=== PATIENT | male | born 1955 | race Caucasian/White ===

== ENCOUNTER → 2021-03-30 | Outpatient (CLI) | payer MEDICARE, OTHER | LOC: CARD 12:00 | PROVIDERS: ATTEND Family Medicine | DX: R01.1 Cardiac murmur, unspecified (principal) | CPT/HCPCS: 93306 ==

== ENCOUNTER 2021-08-01 10:45 | Outpatient (RCR) | payer MEDICARE, OTHER | END 2021-08-03 | LOC: ONC 10:45 | PROVIDERS: ATTEND Radiology Radiation Oncology | DX: C03.1 Malignant neoplasm of lower gum (principal); I10 Essential (primary) hypertension | CPT/HCPCS: 99204; 99214 ==

== ENCOUNTER → 2021-09-03 | Outpatient (RCR) | payer MEDICARE, OTHER ==
[2021-08-10 11:19] LABS: CREATININE SERUM 0.68 MG/DL (0.60-1.30)
== END | disposition home or self-care (01) ==
LOC: ONC 08-10 10:34
PROVIDERS: ATTEND Radiology Radiation Oncology
DX: Z51.0 Encounter for antineoplastic radiation therapy (principal); C03.1 Malignant neoplasm of lower gum
CPT/HCPCS: 77300; 77301; 77334; 77338; 77386; 82565; 84520

== ENCOUNTER → 2021-10-01 | Outpatient (RCR) | payer MEDICARE, OTHER | END | disposition home or self-care (01) | LOC: ONC 09-04 08:45 | PROVIDERS: ATTEND Radiology Radiation Oncology | DX: Z51.0 Encounter for antineoplastic radiation therapy (principal); C03.1 Malignant neoplasm of lower gum; I10 Essential (primary) hypertension; E66.9 Obesity, unspecified | CPT/HCPCS: 77386; G0463; 77336 ==

== ENCOUNTER 2021-10-11 08:16 | Outpatient (RCR) | payer MEDICARE, OTHER | END 2021-11-01 | disposition home or self-care (01) | LOC: ONC 08:16 | PROVIDERS: ATTEND Radiology Radiation Oncology | DX: Z51.0 Encounter for antineoplastic radiation therapy (principal); C03.1 Malignant neoplasm of lower gum; I10 Essential (primary) hypertension; E66.9 Obesity, unspecified | CPT/HCPCS: 77386; G0463; 77336 ==

== ENCOUNTER 2021-11-08 08:51 | Outpatient (RCR) | payer MEDICARE, OTHER | END 2021-12-01 | disposition home or self-care (01) | LOC: ONC 08:51 | PROVIDERS: ATTEND Radiology Radiation Oncology | DX: C03.1 Malignant neoplasm of lower gum (principal); I10 Essential (primary) hypertension; E66.9 Obesity, unspecified | CPT/HCPCS: 99213 ==

== ENCOUNTER 2022-01-18 23:22 | Emergency (ER) | payer MEDICARE, OTHER ==
[~2022-01-18] VITALS: Ht 172.7 cm; Wt 90.3 kg
[2022-01-18 23:56] LABS: BASOPHILS % (AUTO) 1 % (0-10); EOSINOPHILS # (AUTO) 0.2 10^3/uL (0.0-0.3); EOSINOPHILS % (AUTO) 3 % (0-10); HEMATOCRIT 41 % (40-54); HEMOGLOBIN 13.9 g/dL (13.3-17.7); LYMPHOCYTES # (AUTO) 0.9 10^3/uL (1.0-4.0); LYMPHOCYTES % (AUTO) 15 % (12-44); MEAN CORPUSCULAR HEMOGLOBIN 33 pg (25-34); MEAN CORPUSCULAR HGB CONC 34 g/dL (32-36); MEAN CORPUSCULAR VOLUME 97 fL (80-99); MEAN PLATELET VOLUME 9.8 fL (9.0-12.2); MONOCYTES # (AUTO) 0.9 10^3/uL (0.0-1.0); MONOCYTES % (AUTO) 16 % (0-12); NEUTROPHILS # (AUTO) 3.7 10^3/uL (1.8-7.8); NEUTROPHILS % (AUTO) 65 % (42-75); PLATELET COUNT 172 10^3/uL (130-400); WHITE BLOOD COUNT 5.8 10^3/uL (4.3-11.0)
[2022-01-19 00:12] LABS: ALBUMIN 3.8 GM/DL (3.2-4.5); POTASSIUM 3.4 MMOL/L (3.6-5.0)
[2022-01-19 00:13] LABS: CALCIUM 9.1 MG/DL (8.5-10.1)
[2022-01-19 00:14] LABS: TOTAL PROTEIN 6.9 GM/DL (6.4-8.2)
[2022-01-19 00:16] LABS: BILIRUBIN,TOTAL 0.5 MG/DL (0.1-1.0)
[2022-01-19 00:18] LABS: CREATININE SERUM 0.69 MG/DL (0.60-1.30)
[2022-01-19] MEDS ORDERED: NS IV 1000 ML 1,000 ML IV SCH ×2 (00:45→01:30)
--- NOTE | 2022-01-19 01:06 | ED Syncope ---
General Chief Complaint: General Problems/Pain Stated Complaint: WEAKNESS Nursing Triage Note: PT ARRIVAL TO ER VIA WHEELCHAIR AFTER PERIOD OF WEAKNESS, AND FALL AT HOME EARLIER THIS EVENING AROUND 2100 HOURS. SPOUSE STATES THAT PATIENT HAS SPENT ALL DAY OUT IN THE HEAT TODAY CUTTING GRASS AND ATTENDING TO THEIR POOL. SHE STATES THAT PATIENT HAD THIS SAME TYPE OF EPISODE THIS MORNING AND A CONTRACTOR WHO WAS AT THE HOUSE ACTUALLY CAUGHT THE PATIENT HE WAS ABOUT TO FALL. PT STATES THAT HE PROBABLY OVER DID IT TODAY IN THE HEAT. Source of Information: Patient Exam Limitations: No Limitations History of Present Illness Date Seen by Provider: Jan 19, 2022 Time Seen by Provider: 23:44 Initial Comments Patient to the ER by private conveyance with his significant other chief complaint that he has had a syncopal episode earlier today but did not fall. And then about 9:00 tonight he had another similar episode. He has been out cutting grass all day and use some prune juice to have a large bowel movement this morning. He has not been sick with anything. He does have a history of mouth cancer status post chemo and radiation therapy and is lost 70 pounds in the last several months. He has not had changes to his blood pressure medications. He remembers he takes benazepril and atenolol. He has an appointment next week with Dr. Pearson to change his blood pressure medicines. He says he gets lightheaded when he stands back up. He denies striking his head or being on blood thinners. He says he was caught by a contractor who was working at his house. Allergies and Home Medications Allergies Coded Allergies: No Known Drug Allergies (Unverified , 01/19/22) Patient Home Medication List Home Medication List Reviewed: Yes Cephalexin (Cephalexin) 500 Mg Tablet, 500 MG PO BID Prescribed by: JOSE M TAM on 01/19/22 0224 Review of Systems Constitutional: No chills, No diaphoresis EENTM: No ear discharge, No ear pain Respiratory: No cough, No short of breath Cardiovascular: No chest pain, No edema, No palpitations Gastrointestinal: No abdominal pain, No nausea Genitourinary: No discharge, No dysuria Musculoskeletal: No back pain, No joint pain All Other Systems Reviewed Negative Unless Noted: Yes Past Cqukywv-Khzbht-Uaxifv Hx Patient Social History Tobacco Use?: No Smokeless Tobacco Frequency: Former User Use of E-Cig and/or Vaping dev: No Substance use?: No Alcohol Use?: Yes Alcohol type: Hard Liquor, Wine Alcohol Frequency: Daily Pt feels they are or have been: No Immunizations Up To Date Influenza Vaccine Up-to-Date: Yes; Up-to-Date COVID19 Vaccine Benefit Authorizer: GRETEL Physical Exam Vital Signs Vital Signs - First Documented 01/18/22 23:55 Temp 35.8 Pulse 58 Resp 22 B/P (MAP) 136/79 (98) Pulse Ox 97 O2 Delivery Room Air Capillary Refill : Less Than 3 Seconds Height, Weight, BMI Height: '" Weight: lbs. oz. kg; 30.00 BMI Method: General Appearance: No Apparent Distress, WD/WN HEENT: PERRL/EOMI; No Moist Mucous Membranes (Dry oral mucosa) Neck: Full Range of Motion, Normal Inspection, Non Tender Cardiovascular: Regular Rate, Rhythm, No Edema, Normal Peripheral Pulses Respiratory: Lungs Clear, Normal Breath Sounds, No Accessory Muscle Use, No Respiratory Distress Gastrointestinal: Normal Bowel Sounds, No Organomegaly, Non Tender, Soft Neurologic/Psychiatric: Alert, Oriented x3 Motor/Sensory: No Motor Deficit, No Sensory Deficit Skin: Normal Color, Warm/Dry Progress/Results/Core Measures Results/Orders Lab Results Laboratory Tests Test 01/18/22 23:43 01/18/22 23:44 01/18/22 23:45 Range/Units Troponin I < 0.028 <0.028 NG/ML White Blood Count 5.8 4.3-11.0 10^3/uL Red Blood Count 4.23 L 4.30-5.52 10^6/uL Hemoglobin 13.9 13.3-17.7 g/dL Hematocrit 41 40-54 % Mean Corpuscular Volume 97 80-99 fL Mean Corpuscular Hemoglobin 33 25-34 pg Mean Corpuscular Hemoglobin Concent 34 32-36 g/dL Red Cell Distribution Width 13.6 10.0-14.5 % Platelet Count 172 130-400 10^3/uL Mean Platelet Volume 9.8 9.0-12.2 fL Immature Granulocyte % (Auto) 0 % Neutrophils (%) (Auto) 65 42-75 % Lymphocytes (%) (Auto) 15 12-44 % Monocytes (%) (Auto) 16 H 0-12 % Eosinophils (%) (Auto) 3 0-10 % Basophils (%) (Auto) 1 0-10 % Neutrophils # (Auto) 3.7 1.8-7.8 10^3/uL Lymphocytes # (Auto) 0.9 L 1.0-4.0 10^3/uL Monocytes # (Auto) 0.9 0.0-1.0 10^3/uL Eosinophils # (Auto) 0.2 0.0-0.3 10^3/uL Basophils # (Auto) 0.0 0.0-0.1 10^3/uL Immature Granulocyte # (Auto) 0.0 0.0-0.1 10^3/uL Sodium Level 135 135-145 MMOL/L Potassium Level 3.4 L 3.6-5.0 MMOL/L Chloride Level 101 98-107 MMOL/L Carbon Dioxide Level 18 L 21-32 MMOL/L Anion Gap 16 H 5-14 MMOL/L Blood Urea Nitrogen 17 7-18 MG/DL Creatinine 0.69 0.60-1.30 MG/DL Estimat Glomerular Filtration Rate 101 BUN/Creatinine Ratio 25 Glucose Level 97 70-105 MG/DL Calcium Level 9.1 8.5-10.1 MG/DL Corrected Calcium 9.3 8.5-10.1 MG/DL Total Bilirubin 0.5 0.1-1.0 MG/DL Aspartate Amino Transf (AST/SGOT) 39 H 5-34 U/L Alanine Aminotransferase (ALT/SGPT) 28 0-55 U/L Alkaline Phosphatase 86 40-136 U/L Total Creatine Kinase 136 30-200 U/L C-Reactive Protein High Sensitivity 0.84 H 0.00-0.50 MG/DL Total Protein 6.9 6.4-8.2 GM/DL Albumin 3.8 3.2-4.5 GM/DL Urine Color YELLOW Urine Clarity CLEAR Urine pH 6.0 5-9 Urine Specific [place] <=1.005 1.016-1.022 Urine Protein NEGATIVE NEGATIVE Urine Glucose (UA) NEGATIVE NEGATIVE Urine Ketones NEGATIVE NEGATIVE Urine Nitrite NEGATIVE NEGATIVE Urine Bilirubin NEGATIVE NEGATIVE Urine Urobilinogen 0.2 < = 1.0 MG/DL Urine Leukocyte Esterase 2+ H NEGATIVE Urine RBC (Auto) NEGATIVE NEGATIVE Urine RBC NONE /HPF Urine WBC 10-25 H /HPF Urine Squamous Epithelial Cells 2-5 /HPF Urine Crystals NONE /LPF Urine Bacteria NEGATIVE /HPF Urine Casts PRESENT /LPF Urine Hyaline Casts 0-2 H /LPF Urine Mucus NEGATIVE /LPF Urine Culture Indicated YES My Orders Orders - JOSE M TAM Ed Iv/Invasive Line Start (01/18/22 23:23) Cbc With Automated Diff (01/18/22 23:23) Comprehensive Metabolic Panel (01/18/22 23:23) Hs C Reactive Protein (01/18/22 23:23) Creatine Kinase (01/18/22 23:23) Ed Iv/Invasive Line Start (01/19/22 00:44) Ns Iv 1000 Ml (Sodium Chloride 0.9%) (01/19/22 00:45) Orthostatic Vital Signs (Adult (01/19/22 01:00) Ekg Tracing (01/19/22 01:00) Continuous Ekg Monitoring (01/19/22 01:00) Ed Iv/Invasive Line Start (01/19/22 01:19) Ns Iv 1000 Ml (Sodium Chloride 0.9%) (01/19/22 01:30) Troponin I Aga (01/19/22 01:21) Chest 1 View, Ap/Pa Only (01/19/22 01:25) Ua Culture If Indicated (01/19/22 01:36) Urine Culture (01/18/22 23:45) Ceftriaxone 1 Gm Pre-Mix (Rocephin 1 Gm (01/19/22 02:15) Medications Given in ED Current Medications Medications Dose Ordered Sig/Marilynn Route Start Time Stop Time Status Last Admin Dose Admin Ceftriaxone Sodium/Dextrose 50 ml @ 100 mls/hr ONCE ONCE IV 01/19/22 02:15 01/19/22 02:43 DC 01/19/22 02:29 100 MLS/HR Vital Signs/I&O 01/18/22 01/19/22 01/19/22 23:55 01:15 02:35 Temp 35.8 Pulse 58 55 57 56 61 Resp 22 18 B/P (MAP) 136/79 (98) 119/70 (86) 121/71 120/71 (87) 98/67 (77) Pulse Ox 97 98 O2 Delivery Room Air Room Air Blood Pressure Mean: 98 Progress Progress Note #1: Time: 01:05 Progress Note EKG, troponin, labs, orthostatic vital signs and a liter of fluids. His initial labs look okay. Suspect that he needs his blood pressure medicines trimmed back but he does not know the amounts. If his orthostats are positive we may just have him hold his atenolol. Presenting blood pressure is about 120/80. Progress Note #2: Time: 01:35 Progress Note Patient became lightheaded and had a significant drop in his blood pressure from 120 systolic down to 98 systolic from seated to standing position. 20 mL/kg fluid bolus of 2 L have been ordered. Will reassess after the fluids are infused. Progress Note #3: Time: 02:20 Progress Note Given antibiotic for his potential UTI. We will have him hold off on the atenolol until he sees his primary care provider on Friday. He feels that he is ready to go home despite only having received 1500 cc of fluid so we will get him up and walked him around to make sure he is not having any near syncopal episodes. 0225: Patient was able to get up and ambulate up and down the ryan with no as sistance and no near syncopal symptoms. Initial ECG Impression Date: Jan 19, 2022 Initial ECG Impression Time: 01:12 Initial ECG Rate: 56 Initial ECG Rhythm: Normal Sinus Initial ECG Intervals: Normal Initial ECG Impression: Normal Comment Normal sinus rhythm without clinically relevant ST elevation or depression. Diagnostic Imaging Diagonstic Imaging: Xray Plain Films/CT/US/NM/MRI: chest Comments [facility]. [place], [place] NAME: JASVIR [facility] REC#: [id number] PT STATUS: DEP ER : 1955 PHYSICIAN: JOSE M TAM MD ADMIT DATE: 01/18/22/ER Signed Date of Exam:01/19/22 CHEST 1 VIEW, AP/PA ONLY Indication: Syncope Portable chest 1:45 AM Heart size and pulmonary vascularity are normal. Lungs are clear. There are no effusions or pneumothoraces. IMPRESSION: No acute abnormalities in the chest Dictated by: Dictated on workstation # [id number] Dict: 01/19/22606 Trans: 01/19/22606 TCB [id number] Interpreted by: JODIE JAQUEZ MD Electronically signed by: JODIE JAQUEZ MD 01/19/22606 Reviewed: Reviewed by Me Departure Impression Primary Impression: Dehydration Additional Impressions: UTI (urinary tract infection) Qualified Codes: N30.00 - Acute cystitis without hematuria Syncope due to orthostatic hypotension Disposition: HOME, SELF-CARE Condition: Stable Departure-Patient Inst. Decision time for Depature: 02:28 Referrals: SUE PEARSON DO (PCP) Primary Care Physician Patient Instructions: Urinary Tract Infection, Adult ED, Dehydration, Adult (DC), Near Fainting (DC) Add. Discharge Instructions: Drink plenty of fluids. Stop taking your atenolol until you see Dr. Pearson on your Friday appointment. Keflex 500 mg twice a day for 5 more days to treat potential urinary tract infection. Return to the ER for significantly worsening symptoms. All discharge instructions reviewed with patient and/or family. Voiced understanding. Scripts Cephalexin (Cephalexin) 500 Mg Tablet 500 MG PO BID for 5 Days, #10 TAB 0 Refills Prov: JOSE M TAM 01/19/22 JOSE M TAM Jan 19, 2022 01:06
[2022-01-19 01:15] VITALS: BP_SYST 119; BP_SYST 120; BP_SYST 98; BP_DIAS 67; BP_DIAS 70; BP_DIAS 71
[2022-01-19 01:42] LABS: BILIRUBIN,URINE NEGATIVE (NEGATIVE); CLARITY,URINE CLEAR; COLOR,URINE YELLOW; GLUCOSE, URINE (UA) NEGATIVE (NEGATIVE); KETONES,URINE NEGATIVE (NEGATIVE); LEUKOCYTE ESTERASE ,URINE 2+ (NEGATIVE); NITRITE,URINE NEGATIVE (NEGATIVE); PROTEIN,URINE NEGATIVE (NEGATIVE)
[2022-01-19 02:06] LABS: BACTERIA,URINE NEGATIVE /HPF
[2022-01-19 02:07] LABS: HYALINE CASTS, URINE 0-2 /LPF
[2022-01-19] MEDS ORDERED: cefTRIAXone 1 GM PRE-MIX 50 ML IV ONE (02:15)
[2022-01-19] MEDS ORDERED: CEPH500T PO (02:24)
[2022-01-19 02:35] VITALS: BP 121/71
--- NOTE | 2022-01-19 06:08 | Diagnostic Imaging Report ---
Indication: Syncope Portable chest 1:45 AM Heart size and pulmonary vascularity are normal. Lungs are clear. There are no effusions or pneumothoraces. IMPRESSION: No acute abnormalities in the chest Dictated by: Dictated on workstation # [id number]
== END 2022-01-19 02:42 | disposition home or self-care (01) ==
LOC: EDUNIT# 23:22 → ER 23:25
DX: E86.0 Dehydration (principal); N39.0 Urinary tract infection, site not specified; I95.1 Orthostatic hypotension; Z87.891 Personal history of nicotine dependence
CPT/HCPCS: 36415; 71045; 80053; 81000; 82550; 84484; 85025; 86141; 87077; 87088; 93005

== ENCOUNTER 2022-02-28 08:56 | Outpatient (RCR) | payer MEDICARE, OTHER ==
[~2022-02-28 08:56] MED LIST: CEPH500T PO
== END 2022-03-03 | disposition home or self-care (01) ==
LOC: ONC 08:56
PROVIDERS: ATTEND Radiology Radiation Oncology
DX: C03.1 Malignant neoplasm of lower gum (principal); I10 Essential (primary) hypertension; E66.9 Obesity, unspecified; G47.33 Obstructive sleep apnea (adult) (pediatric); Z82.49 Family history of ischemic heart disease and other diseases of the circulatory system
CPT/HCPCS: 99213

== ENCOUNTER 2022-10-11 19:41 | Outpatient (CLI) | payer MEDICARE, OTHER | END 2022-10-12 06:20 | disposition home or self-care (01) | LOC: SLEEP 19:41 | PROVIDERS: ATTEND Nurse Practitioner Family | DX: G47.33 Obstructive sleep apnea (adult) (pediatric) (principal); I10 Essential (primary) hypertension; R06.83 Snoring | CPT/HCPCS: 95811 ==

== ENCOUNTER 2022-11-29 10:23 | Emergency (ER) | payer MEDICARE, OTHER ==
[~2022-11-29] VITALS: Ht 172.7 cm; Wt 95.0 kg
--- NOTE | 2022-11-29 10:57 | ED Cardiac General ---
History of Present Illness General Chief Complaint: Cardiac/General Problems Stated Complaint: CHEST PAINS | HEADACHES Nursing Triage Note: PT TO RM 9 BY [facility] WITH C/O CP WORSENING WITH PALPATION, BARAJAS TODAY, L EYE VISION LOSS, FALL 4 DAYS AGO WITH LOC Source: patient Exam Limitations: no limitations History of Present Illness Date Seen by Provider: Nov 29, 2022 Time Seen by Provider: 10:37 Initial Comments Patient is a 67-year-old male who presents to the emergency room by ambulance chief complaint of chest pain onset today. It has improved throughout the day. It is nonradiating, no associated shortness of breath, nausea or sweating. He also has an occipital headache and states that his left eye is "blurry". He also endorses right arm weakness. Patient states that on Friday of this week he was working out in his yard, bent over to pick something up and had a syncopal event. He is not sure how long he was out for. He was not able to get up secondary to feeling dizzy afterwards. He called 911 and a police captain precinct assisted him to a chair after which she was able to get up and go into his house. He did not have any medical attention at that time. He had an appointment with his primary care physician Dr. Pearson the following day on Friday of this last week. He did not mention the syncopal event or hitting his head. No changes were made to his medications. Through the course of the rest of the week he has developed this worsening headache as well as the "foggy" vision in his left eye. He denies any problems with balance or coordination currently. His chest pain seems to be reproducible with palpation of the chest wall. He is not short of breath. No swelling in his legs. No problems with bowel or bladder. No recent fevers, chills or infectious complaints. Timing/Duration: 1-3 hours Severity: mild Location: substernal Activities at Onset: none Associated Systoms: Chest Pain, Headaches, Other (left eye "foggy") Allergies and Home Medications Allergies Coded Allergies: Sulfa (Sulfonamide Antibiotics) (Verified Allergy, Unknown, 11/29/22) Patient Home Medication List Home Medication List Reviewed: Yes Cephalexin (Cephalexin) 500 Mg Tablet, 500 MG PO BID Prescribed by: JOSE M TAM on 01/19/22 0224 Review of Systems Review of Systems Constitutional: see HPI EENTM: Blurred Vision ("foggy" from left eye) Respiratory: No Symptoms Reported Cardiovascular: Chest Pain Gastrointestinal: No Symptoms Reported Genitourinary: No Symptoms Reported Musculoskeletal: no symptoms reported Skin: no symptoms reported Psychiatric/Neurological: Headache (occipital), Weakness (right arm) All Other Systems Reviewed Negative Unless Noted: Yes Past Mqfsaun-Ltujnk-Cfbvrl Hx Patient Social History Tobacco Use?: No Substance use?: No Alcohol Use?: Yes Alcohol Frequency: Couple times a week Pt feels they are or have been: No Immunizations Up To Date First/Initial COVID19 Vaccinat: 12/23 Second COVID19 Vaccination Rufus: YES Third COVID19 Vaccination Date: YES Past Medical History Surgery/Hospitalization HX: GOUT, HTN, GERD Physical Exam Vital Signs Vital Signs - First Documented 11/29/22 11/29/22 10:50 13:02 Temp 36.7 Pulse 59 Resp 20 B/P (MAP) 161/83 (109) Pulse Ox 97 O2 Delivery Room Air Capillary Refill : Height, Weight, BMI Height: '" Weight: lbs. oz. kg; 31.00 BMI Method: General Appearance: No Apparent Distress, WD/WN HEENT: PERRL/EOMI Neck: Normal Inspection Respiratory: Lungs Clear, Normal Breath Sounds, No Accessory Muscle Use, No Respiratory Distress, Other (tenderness to palpation of the right anterior chest wall. no rashes overlying) Cardiovascular: Regular Rate, Rhythm, Normal Peripheral Pulses Gastrointestinal: Non Tender, Soft Extremity: Normal Inspection, Normal Range of Motion Neurologic/Psychiatric: Alert, Oriented x3, Normal Mood/Affect Skin: Normal Color, Warm/Dry Progress/Results/Core Measures Results/Orders Lab Results Laboratory Tests Test 11/29/22 11:07 Range/Units White Blood Count 3.7 L 4.3-11.0 10^3/uL Red Blood Count 4.46 4.30-5.52 10^6/uL Hemoglobin 15.0 13.3-17.7 g/dL Hematocrit 44 40-54 % Mean Corpuscular Volume 99 80-99 fL Mean Corpuscular Hemoglobin 34 25-34 pg Mean Corpuscular Hemoglobin Concent 34 32-36 g/dL Red Cell Distribution Width 12.5 10.0-14.5 % Platelet Count 135 130-400 10^3/uL Mean Platelet Volume 9.2 9.0-12.2 fL Immature Granulocyte % (Auto) 1 % Neutrophils (%) (Auto) 65 42-75 % Lymphocytes (%) (Auto) 20 12-44 % Monocytes (%) (Auto) 11 0-12 % Eosinophils (%) (Auto) 3 0-10 % Basophils (%) (Auto) 1 0-10 % Neutrophils # (Auto) 2.4 1.8-7.8 10^3/uL Lymphocytes # (Auto) 0.7 L 1.0-4.0 10^3/uL Monocytes # (Auto) 0.4 0.0-1.0 10^3/uL Eosinophils # (Auto) 0.1 0.0-0.3 10^3/uL Basophils # (Auto) 0.0 0.0-0.1 10^3/uL Immature Granulocyte # (Auto) 0.0 0.0-0.1 10^3/uL Prothrombin Time 12.0 L 12.2-14.7 SEC INR Comment 0.8 0.8-1.4 Activated Partial Thromboplast Time 27 24-35 SEC Sodium Level 145 135-145 MMOL/L Potassium Level 4.2 3.6-5.0 MMOL/L Chloride Level 110 H 98-107 MMOL/L Carbon Dioxide Level 21 21-32 MMOL/L Anion Gap 14 5-14 MMOL/L Blood Urea Nitrogen 14 7-18 MG/DL Creatinine 0.64 0.60-1.30 MG/DL Estimat Glomerular Filtration Rate 104 BUN/Creatinine Ratio 22 Glucose Level 102 70-105 MG/DL Calcium Level 9.2 8.5-10.1 MG/DL Corrected Calcium 9.4 8.5-10.1 MG/DL Magnesium Level 1.7 1.6-2.4 MG/DL Total Bilirubin 0.4 0.1-1.0 MG/DL Aspartate Amino Transf (AST/SGOT) 48 H 5-34 U/L Alanine Aminotransferase (ALT/SGPT) 33 0-55 U/L Alkaline Phosphatase 85 40-136 U/L Troponin I < 0.028 <0.028 NG/ML Total Protein 7.0 6.4-8.2 GM/DL Albumin 3.8 3.2-4.5 GM/DL My Orders Orders - JOANN WOODS MD Cbc With Automated Diff (11/29/22 10:54) Magnesium (11/29/22 10:54) Chest 1 View, Ap/Pa Only (11/29/22 10:54) Ekg Tracing (11/29/22 10:54) Comprehensive Metabolic Panel (11/29/22 10:54) Protime With Inr (11/29/22 10:54) Partial Thromboplastin Time (11/29/22 10:54) O2 (11/29/22 10:54) Monitor-Rhythm Ecg Trace Only (11/29/22 10:54) Ed Iv/Invasive Line Start (11/29/22 10:54) Troponin I Pine (11/29/22 10:54) Ct Head Wo (11/29/22 10:54) Ketorolac Injection (Toradol Injection) (11/29/22 12:45) Vital Signs/I&O 11/29/22 11/29/22 10:50 13:02 Temp 36.7 36.7 Pulse 59 57 Resp 20 20 B/P (MAP) 161/83 (109) 159/82 Pulse Ox 97 O2 Delivery Room Air Blood Pressure Mean: 109 Progress Progress Note : Time: 12:55 Progress Note Patient seen and evaluated by me. Evaluation today includes physical exam, EKG, CBC, Chem-12, troponin. Coagulation profile PT/PTT/INR. He had CT head without contrast and chest x-ray. Pertinent physical exam findings well-developed well- nourished male in no acute distress. Heart is regular, lungs are clear. Abdomen is benign. Patient complains of right upper extremity weakness however on neurologic testing the patient has equal intact 5/5 strength in the bilateral upper extremities as well as lower extremities. No focal neurologic deficits are elicited. HEENT exam is within normal limits. Vital signs are stable. Differential diagnosis based on history and physical, acute intracranial hemor rhage/contusion, NSTEMI, dehydration, musculoskeletal chest wall pain. Labs independently reviewed by me as well as EKG and chest x-ray. EKG is normal, no signs of ST segment elevation or depression or arrhythmia. CBC is normal. Total white count 3.7, normal hemoglobin and hematocrit. Chemistry unremarkable. Troponin undetectable. Coags normal. Chest x-ray shows no focal infiltrate or effusion, fractures or pneumothorax. CT head per radiologist no acute findings. Patient is treated in the emergency department with 15 mg of Toradol IV for his musculoskeletal chest wall pain. No concerning findings or suspicious clinical findings for CVA. Consideration for CT head and neck angiogram however history and physical do not support the need. Patient is very anxious for discharge at about the 2-hour sunil of being in the emergency department. He does not want to stay in the hospital. I have encouraged him to return for any new, worsening symptoms especially unilateral weakness numbness or tingling worsening vision problems, speech difficulties. Plan on discussing the fact that he did not mention his syncopal episode or fall to his primary care provider at the visit earlier in the week with his primary care provider. Patient's vital signs are stable. He verbalizes understanding of the discharge plan. All questions are sought and answered. Patient stable for discharge Initial ECG Impression Date: Nov 29, 2022 Initial ECG Impression Time: 11:05 Initial ECG Rate: 54 Initial ECG Rhythm: Normal Sinus, S.Gama Initial ECG Intervals MI 197 QRS 108 QTc 422 Initial ECG Impression: Normal Diagnostic Imaging Diagonstic Imaging: Xray Plain Films/CT/US/NM/MRI: chest Comments [email or web address] [place], [place] NAME: BETHELYAAKOVJASVIR [facility] REC#: [id number] PT STATUS: REG ER : 1955 PHYSICIAN: JOANN WOODS MD ADMIT DATE: 11/29/22/ER Draft Date of Exam:11/29/22 CHEST 1 VIEW, AP/PA ONLY EXAMINATION: Chest radiograph, portable AP view. DATE: 11/29/2022 11:25 AM INDICATION: 67-year-old male, chest pain. COMPARISON: January 19, 2022. FINDINGS: Heart size and mediastinal contours are unchanged. There is no identified pneumothorax. There is no large pleural effusion. There is no identified focal airspace consolidation. IMPRESSION: 1. No identified acute cardiopulmonary abnormality. Dictated on workstation # [id number] Dict: 11/29/22 1126 Trans: 11/29/22 1127 [facility] [id number] Interpreted by: BRIANNA GENAO MD Electronically signed by: Diagonstic Imaging: CT Comments [email or web address] [place], [place] NAME: JASVIR SCHNEIDER [facility] REC#: [id number] PT STATUS: REG ER : 1955 PHYSICIAN: JOANN WOODS MD ADMIT DATE: 11/29/22/ER Draft Date of Exam:11/29/22 CT HEAD WO PROCEDURE: CT head without contrast. TECHNIQUE: Multiple contiguous axial images were obtained through the brain without the use of intravenous contrast. Auto Exposure Controls were utilized during the CT exam to meet ALARA standards for radiation dose reduction. INDICATION: Fall 2 days ago with visual changes. No prior studies are available for comparison. There is some prominence of ventricles and sulci consistent with cerebral volume loss. No sulcal effacement or midline shift is identified. No acute intra-axial or extra-axial hemorrhage is detected. Cisterns are patent. Visualized paranasal sinuses are clear. IMPRESSION: No acute intracranial process is detected. Dictated on workstation # [id number] Dict: 11/29/22 1125 Trans: 11/29/22 1127 [facility] [id number] Interpreted by: TESSA DOUGHERTY MD Electronically signed by: Departure Impression Primary Impression: Chest pain Qualified Codes: R07.9 - Chest pain, unspecified Additional Impression: Headache Qualified Codes: R51.9 - Headache, unspecified Disposition: 01 HOME, SELF-CARE Condition: Improved Departure-Patient Inst. Decision time for Depature: 12:47 Referrals: SUE PEARSON DO (PCP/Family) Primary Care Physician Patient Instructions: Headache, Adult, Syncope (Fainting) Add. Discharge Instructions: You should take extra strength Tylenol, 2 tablets every 6 hours as needed for headache. Be sure and drink plenty of fluids every day. You can use pbyv-kgk-[id number] Voltaren gel, Biofreeze or IcyHot to the chest wall as needed for discomfort. If you have any worsening chest pain especially associated with sweating, nausea or shortness of breath please come back to the emergency department for reevaluation. Please follow-up with Dr. Pearson and let her know about the passing out spell you had last Friday. You may need some further evaluation of this. Copy Copies To 1: SUE PEARSON KATHRYN M MD Nov 29, 2022 10:57
[2022-11-29 11:12] LABS: BASOPHILS % (AUTO) 1 % (0-10); EOSINOPHILS # (AUTO) 0.1 10^3/uL (0.0-0.3); EOSINOPHILS % (AUTO) 3 % (0-10); HEMATOCRIT 44 % (40-54); LYMPHOCYTES # (AUTO) 0.7 10^3/uL (1.0-4.0); LYMPHOCYTES % (AUTO) 20 % (12-44); MEAN CORPUSCULAR HEMOGLOBIN 34 pg (25-34); MEAN CORPUSCULAR HGB CONC 34 g/dL (32-36); MEAN CORPUSCULAR VOLUME 99 fL (80-99); MEAN PLATELET VOLUME 9.2 fL (9.0-12.2); MONOCYTES # (AUTO) 0.4 10^3/uL (0.0-1.0); MONOCYTES % (AUTO) 11 % (0-12); NEUTROPHILS # (AUTO) 2.4 10^3/uL (1.8-7.8); NEUTROPHILS % (AUTO) 65 % (42-75); PLATELET COUNT 135 10^3/uL (130-400); WHITE BLOOD COUNT 3.7 10^3/uL (4.3-11.0)
[2022-11-29 11:24] LABS: INR 0.8 (0.8-1.4)
[2022-11-29 11:25] LABS: ALBUMIN 3.8 GM/DL (3.2-4.5); POTASSIUM 4.2 MMOL/L (3.6-5.0)
[2022-11-29 11:26] LABS: CALCIUM 9.2 MG/DL (8.5-10.1)
--- NOTE | 2022-11-29 11:28 | Diagnostic Imaging Report ---
PROCEDURE: CT head without contrast. TECHNIQUE: Multiple contiguous axial images were obtained through the brain without the use of intravenous contrast. Auto Exposure Controls were utilized during the CT exam to meet ALARA standards for radiation dose reduction. INDICATION: Fall 2 days ago with visual changes. No prior studies are available for comparison. There is some prominence of ventricles and sulci consistent with cerebral volume loss. No sulcal effacement or midline shift is identified. No acute intra-axial or extra-axial hemorrhage is detected. Cisterns are patent. Visualized paranasal sinuses are clear. IMPRESSION: No acute intracranial process is detected. Dictated by: Dictated on workstation # [id number]
--- NOTE | 2022-11-29 11:28 | Diagnostic Imaging Report ---
EXAMINATION: Chest radiograph, portable AP view. DATE: 11/29/2022 11:25 AM INDICATION: 67-year-old male, chest pain. COMPARISON: January 19, 2022. FINDINGS: Heart size and mediastinal contours are unchanged. There is no identified pneumothorax. There is no large pleural effusion. There is no identified focal airspace consolidation. IMPRESSION: 1. No identified acute cardiopulmonary abnormality. Dictated by: Dictated on workstation # [id number]
[2022-11-29 11:29] LABS: BILIRUBIN,TOTAL 0.4 MG/DL (0.1-1.0)
[2022-11-29 11:31] LABS: CREATININE SERUM 0.64 MG/DL (0.60-1.30)
[2022-11-29 11:34] LABS: MAGNESIUM 1.7 MG/DL (1.6-2.4)
[2022-11-29] MEDS ORDERED: KETOROLAC 15 MG/ML VIAL IVP ONE (12:45)
[2022-11-29 13:02] VITALS: BP 159/82
== END 2022-11-29 13:05 | disposition home or self-care (01) ==
LOC: EDUNIT# 10:23 → ER 10:26
DX: R07.2 Precordial pain (principal); R51.9 Headache, unspecified; R53.1 Weakness
CPT/HCPCS: 36415; 70450; 71045; 80053; 83735; 84484; 85025; 85610; 85730; 93005; 93041

== ENCOUNTER 2023-05-10 18:18 | Emergency (ER) | payer MEDICARE, OTHER ==
[2023-05-10] MEDS ORDERED: NS IV 500 ML 500 ML IV ONE (18:30)
[2023-05-10 18:37] LABS: BASOPHILS % (AUTO) 1 % (0-10); EOSINOPHILS # (AUTO) 0.1 10^3/uL (0.0-0.3); EOSINOPHILS % (AUTO) 2 % (0-10); HEMATOCRIT 39 % (40-54); HEMOGLOBIN 13.4 g/dL (13.3-17.7); LYMPHOCYTES # (AUTO) 0.7 10^3/uL (1.0-4.0); LYMPHOCYTES % (AUTO) 21 % (12-44); MEAN CORPUSCULAR HEMOGLOBIN 35 pg (25-34); MEAN CORPUSCULAR HGB CONC 35 g/dL (32-36); MEAN CORPUSCULAR VOLUME 101 fL (80-99); MEAN PLATELET VOLUME 9.4 fL (9.0-12.2); MONOCYTES # (AUTO) 0.4 10^3/uL (0.0-1.0); MONOCYTES % (AUTO) 11 % (0-12); NEUTROPHILS # (AUTO) 2.1 10^3/uL (1.8-7.8); NEUTROPHILS % (AUTO) 63 % (42-75); PLATELET COUNT 131 10^3/uL (130-400); WHITE BLOOD COUNT 3.4 10^3/uL (4.3-11.0)
--- NOTE | 2023-05-10 18:37 | ED General ---
General Chief Complaint: General Problems/Pain Stated Complaint: WEAKNESS Source of Information: Patient Exam Limitations: No Limitations History of Present Illness Date Seen by Provider: May 10, 2023 Time Seen by Provider: 18:20 Initial Comments Here by EMS with report of weakness today. Apparently he had been working out in the yard all day and had come in to take a shower. Patient reports that he was drinking water well today but did not eat lunch. In the shower his knees became weak and he slid down. Denies hitting his head or any injury. EMS was summoned. Apparently he had an episode similar previously and had work-up with his doctor this week all labs were apparently normal. wanted him to get c hecked out. Initially patient did not want to come to the emergency department then ultimately acquiesced. Denies any pain or problems currently. Denies chest pain, breathing problems, sweating, nausea, vomiting, headache, fever or chills. Weakness of his legs continue this. States this is actually more global weakness. Other than that he states he does not feel bad. Reports drinking whiskey daily Timing/Duration: 1-3 Hours Severity: Moderate Associated Systoms: Weakness Allergies and Home Medications Allergies Coded Allergies: Sulfa (Sulfonamide Antibiotics) (Verified Allergy, Unknown, 11/29/22) Patient Home Medication List Home Medication List Reviewed: Yes Cephalexin (Cephalexin) 500 Mg Tablet, 500 MG PO BID Prescribed by: JOSE M TAM on 01/19/22 0224 Review of Systems Review of Systems Constitutional: see HPI; No chills, No fever EENTM: No nose congestion, No throat pain Respiratory: no symptoms reported Cardiovascular: No chest pain, No edema, No palpitations Gastrointestinal: No nausea, No vomiting Genitourinary: no symptoms reported Musculoskeletal: No muscle pain; muscle weakness Skin: no symptoms reported Psychiatric/Neurological: See HPI Past Rmfgsae-Ewlilv-Dmkhvj Hx Patient Social History Tobacco Use?: No Use of E-Cig and/or Vaping dev: No Substance use?: No Alcohol Use?: Yes Alcohol type: Hard Liquor Alcohol Frequency: Daily Immunizations Up To Date First/Initial COVID19 Vaccinat: 12/23 Second COVID19 Vaccination Rufus: YES Third COVID19 Vaccination Date: YES Past Medical History Surgery/Hospitalization HX: GOUT, HTN, GERD Surgeries: Yes Orthopedic Respiratory: No Cardiac: Yes Hypertension Neurological: No Gastrointestinal: Yes Gastroesophageal Reflux Musculoskeletal: Yes Gout Cancer: Yes (Jaw) What Type of Treatment Did You: Surgical Intervention Family Medical History No Pertinent Family Hx Physical Exam Vital Signs Vital Signs - First Documented 05/10/23 18:20 Temp 35.8 Pulse 62 Resp 12 B/P (MAP) 134/73 (93) Pulse Ox 100 O2 Delivery Room Air Capillary Refill : Height, Weight, BMI Height: '" Weight: lbs. oz. kg; 31.00 BMI Method: General Appearance: No Apparent Distress, WD/WN HEENT: PERRL/EOMI, Pharynx Normal Neck: Non Tender, Supple Respiratory: Lungs Clear, Normal Breath Sounds Cardiovascular: Regular Rate, Rhythm, No Murmur Gastrointestinal: Non Tender, Soft Back: Normal Inspection, No CVA Tenderness, No Vertebral Tenderness Extremity: Normal Range of Motion, Non Tender, No Calf Tenderness Neurologic/Psychiatric: Alert, Oriented x3, No Motor/Sensory Deficits, Normal Mood/Affect Skin: Normal Color, Warm/Dry Progress/Results/Core Measures Suspected Sepsis SIRS Temperature: Pulse: Respiratory Rate: Laboratory Tests 05/10/23 18:29: White Blood Count 3.4L Blood Pressure / Mean: Laboratory Tests 05/10/23 18:29: Creatinine 0.73, Platelet Count 131, Total Bilirubin 0.5 Results/Orders Lab Results Laboratory Tests Test 05/10/23 18:29 05/10/23 18:33 05/10/23 19:40 Range/Units White Blood Count 3.4 L 4.3-11.0 10^3/uL Red Blood Count 3.84 L 4.30-5.52 10^6/uL Hemoglobin 13.4 13.3-17.7 g/dL Hematocrit 39 L 40-54 % Mean Corpuscular Volume 101 H 80-99 fL Mean Corpuscular Hemoglobin 35 H 25-34 pg Mean Corpuscular Hemoglobin Concent 35 32-36 g/dL Red Cell Distribution Width 12.8 10.0-14.5 % Platelet Count 131 130-400 10^3/uL Mean Platelet Volume 9.4 9.0-12.2 fL Immature Granulocyte % (Auto) 1 % Neutrophils (%) (Auto) 63 42-75 % Lymphocytes (%) (Auto) 21 12-44 % Monocytes (%) (Auto) 11 0-12 % Eosinophils (%) (Auto) 2 0-10 % Basophils (%) (Auto) 1 0-10 % Neutrophils # (Auto) 2.1 1.8-7.8 10^3/uL Lymphocytes # (Auto) 0.7 L 1.0-4.0 10^3/uL Monocytes # (Auto) 0.4 0.0-1.0 10^3/uL Eosinophils # (Auto) 0.1 0.0-0.3 10^3/uL Basophils # (Auto) 0.0 0.0-0.1 10^3/uL Immature Granulocyte # (Auto) 0.0 0.0-0.1 10^3/uL Sodium Level 140 135-145 MMOL/L Potassium Level 4.7 3.6-5.0 MMOL/L Chloride Level 106 98-107 MMOL/L Carbon Dioxide Level 17 L 21-32 MMOL/L Anion Gap 17 H 5-14 MMOL/L Blood Urea Nitrogen 14 7-18 MG/DL Creatinine 0.73 0.60-1.30 MG/DL Estimat Glomerular Filtration Rate 99 BUN/Creatinine Ratio 19 Glucose Level 104 70-105 MG/DL Calcium Level 8.9 8.5-10.1 MG/DL Corrected Calcium 8.9 8.5-10.1 MG/DL Total Bilirubin 0.5 0.1-1.0 MG/DL Aspartate Amino Transf (AST/SGOT) 60 H 5-34 U/L Alanine Aminotransferase (ALT/SGPT) 38 0-55 U/L Alkaline Phosphatase 64 40-136 U/L Troponin I < 0.028 <0.028 NG/ML Total Protein 7.1 6.4-8.2 GM/DL Albumin 4.0 3.2-4.5 GM/DL Free Thyroxine 0.66 L 0.70-1.48 NG/DL TSH [place] Testing 19.47 H 0.35-4.94 UIU/ML Serum Alcohol 299 H <10 MG/DL Glucometer 105 70-110 MG/DL Urine Color YELLOW Urine Clarity CLEAR Urine pH 5.0 5-9 Urine Specific Walker 1.020 1.016-1.022 Urine Protein NEGATIVE NEGATIVE Urine Glucose (UA) NEGATIVE NEGATIVE Urine Ketones NEGATIVE NEGATIVE Urine Nitrite NEGATIVE NEGATIVE Urine Bilirubin NEGATIVE NEGATIVE Urine Urobilinogen 0.2 < = 1.0 MG/DL Urine Leukocyte Esterase NEGATIVE NEGATIVE Urine RBC (Auto) NEGATIVE NEGATIVE Urine RBC RARE /HPF Urine WBC RARE /HPF Urine Squamous Epithelial Cells RARE /HPF Urine Crystals NONE /LPF Urine Bacteria TRACE /HPF Urine Casts PRESENT /LPF Urine Hyaline Casts 0-2 H /LPF Urine Mucus NEGATIVE /LPF Urine Culture Indicated NO My Orders Orders - JODIE BROWN MD Ekg Tracing (05/10/23 18:25) Cbc And Automated Diff (05/10/23 18:) Comprehensive Metabolic Panel (05/10/23 18:) Thyroid Analyzer (05/10/23 18:) Troponin I Aga (05/10/23 18:27) Ua Culture If Indicated (05/10/23 18:) Accucheck Stat ONCE (05/10/23 18:) Ct Head Wo (05/10/23 18:) Ed Iv/Invasive Line Start (05/10/23 18:27) Ns Iv 500 Ml (Ns Iv 500 Ml) (05/10/23 18:30) Chest 1 View, Ap/Pa Only (05/10/23 18:30) Alcohol (05/10/23 18:38) Free T4 (Free Thyroxine) (05/10/23 18:29) Medications Given in ED Current Medications Medications Dose Ordered Sig/Marilynn Route Start Time Stop Time Status Last Admin Dose Admin Sodium Chloride 500 ml @ 0 mls/hr Q0M ONCE IV 05/10/23 18:30 05/10/23 18:31 DC 05/10/23 18:38 1,000 MLS/HR Vital Signs/I&O 05/10/23 18:20 Temp 35.8 Pulse 62 Resp 12 B/P (MAP) 134/73 (93) Pulse Ox 100 O2 Delivery Room Air Capillary Refill : Progress Note : Progress Note Seen and evaluated. IV, labs including CBC, CMP, troponin, thyroid and UA ordered. Chest x-ray, EKG and CT head ordered for weakness. Patient has no focal weakness or deficit noted. Fingerstick blood sugar 105. Normal saline 500 mL bolus ordered. Monitor patient. Diagnosis includes electrolyte abnormality, dehydration, cardiac event, intracranial hemorrhage or mass, thyroid dysfunction, toxins 1902: Chest x-ray reviewed by me and shows no acute abnormality on my interpretation. CT of the head reviewed by me and shows no acute intracranial hemorrhage or mass noted on my interpretation. Patient. 1915: CBC reviewed and white count is slightly low but hemoglobin is normal and otherwise no sig nificant findings. CMP is grossly normal electrolytes with normal creatinine and grossly normal LFTs with slight elevation of AST. Troponin and thyroid studies pending. UA pending. Alcohol level came back at 299. I did discuss this with the patient. He states he only had 1 whiskey today but it was a large one. We did discuss importance of appropriate fluid intake and decreasing alcohol intake. Patient verbalized understanding. Monitor patient. 1918: Troponin negative. TSH noted to be quite elevated and free T4 is pending. Monitor patient. 2039: I did speak with the patient regarding his thyroid function. Free T4 is just under normal level at 0.66 although he would probably benefit from medication for thyroid. I will send a copy of this note to the primary care provider, Dr. LOYA for her to prescribe dosing as needed. Discharged home with return precautions. Patient verbalized understanding instructions and agreement with plan. Patient was able to stand and walk without difficulty or assistance currently. ECG Initial ECG Impression Date: May 10, 2023 Initial ECG Impression Time: 18:28 Initial ECG Rate: 56 Initial ECG Rhythm: S.Gama Initial ECG Impression: Sinus Bradycardia Comment Sinus bradycardia with normal axis. Interventricular conduction delay noted. No evidence of ST elevation [place]. Interpreted by me. Diagnostic Imaging Diagonstic Imaging: Xray Plain Films/CT/US/NM/MRI: chest Comments [facility]. [place], [place] NAME: JASVIR SCHNEIDER [facility] REC#: [id number] PT STATUS: REG ER : 1955 PHYSICIAN: JODIE BROWN MD ADMIT DATE: 05/10/23/ER Draft Date of Exam:05/10/23 CHEST 1 VIEW, AP/PA ONLY CLINICAL INDICATION: Patient has increased weakness this evening after being outside for most of the day. Patient has had frequent falls over the last month. EXAM: Portable chest x-ray, upright view. COMPARISON: Chest x-ray dated 11/29/2022. FINDINGS: Lungs/pleura: Lungs are clear. There is no pneumothorax. There is no pleural effusion. Mediastinum: Unremarkable. Pulmonary vasculature: Unremarkable. Heart: Unremarkable. Bones/extrathoracic soft tissue: There are hypertrophic spurs involving the thoracic spine. IMPRESSION: There is no radiographic evidence of acute cardiopulmonary process. Dictated on workstation # [id number] Dict: 05/10/231902 Trans: 05/10/231915 MEGA [id number] Interpreted by: LUCIO FERREIRA MD Electronically signed by: Earlene Imaging: CT Plain Films/CT/US/NM/MRI: head Comments [facility] [place] [place] NAME: JASVIR SCHNEIDER [facility] REC#: [id number] PT STATUS: REG ER : 1955 PHYSICIAN: JODIE BROWN MD ADMIT DATE: 05/10/23/ER Draft Date of Exam:05/10/23 CT HEAD WO CLINICAL INDICATION: Patient with complaints of increasing weakness this evening after being outside most of the day with frequent falls over the last month. EXAM: Axial CT scan of the brain without IV contrast with coronal and sagittal reformatted images. Auto Exposure Controls were utilized during the CT exam to meet ALARA standards for radiation dose reduction. COMPARISON: Head CT without contrast dated 11/29/2022. FINDINGS: There is no evidence of acute cerebral infarct, intracranial hemorrhage, or gross mass effect. The brain parenchymal volume appears appropriate for patient's age. There is mild chronic small vessel ischemic disease again seen. There is normal gallo-white matter distinction. There is no significant midline shift or herniation. There is no evidence of hydrocephalus. The basal cisterns are unremarkable. The skull, extracranial soft tissue, and orbits are unremarkable. The paranasal sinuses are unremarkable. The temporal bones show no significant abnormality. IMPRESSION: There is no CT evidence of an acute intracranial process. Dictated on workstation # [id number] Dict: 05/10/231904 Trans: 05/10/231930 MEGA [id number] Interpreted by: LUCIO FERREIRA MD Electronically signed by: Departure Impression Primary Impression: Weakness Additional Impressions: Hypothyroidism Qualified Codes: E03.9 - Hypothyroidism, unspecified Dehydration Disposition: 01 HOME, SELF-CARE Condition: Improved Departure-Patient Inst. Decision time for Depature: 20:46 Referrals: SUE LOYA DO (PCP/Family) Primary Care Physician Patient Instructions: Hypothyroidism (underactive thyroid), Dehydration, Adult ED, Weakness ED Add. Discharge Instructions: All discharge instructions reviewed with patient and/or family. Voiced understanding. Call Dr. LOYA's office on Friday for recheck and further evaluation and to discuss your thyroid hormone level and possible medication treatment. Return for worse pain, fever, vomiting, weakness, breathing problems or other concerns as needed. You should rest tomorrow and drink an adequate amount of fluids and return to normal diet. Copy Copies To 1: SUE LOYA TIMOTHY D MD May 10, 2023 18:37
[2023-05-10 18:58] LABS: ALANINE AMINOTRANSFERASE 38 U/L (0-55); ALKALINE PHOSPHATASE 64 U/L (40-136); BILIRUBIN,TOTAL 0.5 MG/DL (0.1-1.0); BUN/CREATININE RATIO 19; CALCIUM 8.9 MG/DL (8.5-10.1); CARBON DIOXIDE 17 MMOL/L (21-32); CHLORIDE 106 MMOL/L (98-107); CREATININE SERUM 0.73 MG/DL (0.60-1.30); GFR ESTIMATED 99; GLUCOSE 104 MG/DL (70-105); POTASSIUM 4.7 MMOL/L (3.6-5.0); SODIUM 140 MMOL/L (135-145); TOTAL PROTEIN 7.1 GM/DL (6.4-8.2)
[2023-05-10 19:18] LABS: TSH (THYROID ANALYZER) 19.47 UIU/ML (0.35-4.94)
--- NOTE | 2023-05-10 19:18 | Diagnostic Imaging Report ---
CLINICAL INDICATION: Patient has increased weakness this evening after being outside for most of the day. Patient has had frequent falls over the last month. EXAM: Portable chest x-ray, upright view. COMPARISON: Chest x-ray dated 11/29/2022. FINDINGS: Lungs/pleura: Lungs are clear. There is no pneumothorax. There is no pleural effusion. Mediastinum: Unremarkable. Pulmonary vasculature: Unremarkable. Heart: Unremarkable. Bones/extrathoracic soft tissue: There are hypertrophic spurs involving the thoracic spine. IMPRESSION: There is no radiographic evidence of acute cardiopulmonary process. Dictated by: Dictated on workstation # [id number]
--- NOTE | 2023-05-10 19:32 | Diagnostic Imaging Report ---
CLINICAL INDICATION: Patient with complaints of increasing weakness this evening after being outside most of the day with frequent falls over the last month. EXAM: Axial CT scan of the brain without IV contrast with coronal and sagittal reformatted images. Auto Exposure Controls were utilized during the CT exam to meet ALARA standards for radiation dose reduction. COMPARISON: Head CT without contrast dated 11/29/2022. FINDINGS: There is no evidence of acute cerebral infarct, intracranial hemorrhage, or gross mass effect. The brain parenchymal volume appears appropriate for patient's age. There is mild chronic small vessel ischemic disease again seen. There is normal gallo-white matter distinction. There is no significant midline shift or herniation. There is no evidence of hydrocephalus. The basal cisterns are unremarkable. The skull, extracranial soft tissue, and orbits are unremarkable. The paranasal sinuses are unremarkable. The temporal bones show no significant abnormality. IMPRESSION: There is no CT evidence of an acute intracranial process. Dictated by: Dictated on workstation # [id number]
[2023-05-10 19:53] LABS: FREE T4 (FREE THYROXINE) 0.66 NG/DL (0.70-1.48)
[2023-05-10 20:18] LABS: CLARITY,URINE CLEAR; COLOR,URINE YELLOW
[2023-05-10 20:19] LABS: BACTERIA,URINE TRACE /HPF; BILIRUBIN,URINE NEGATIVE (NEGATIVE); GLUCOSE, URINE (UA) NEGATIVE (NEGATIVE); HYALINE CASTS, URINE 0-2 /LPF; KETONES,URINE NEGATIVE (NEGATIVE); LEUKOCYTE ESTERASE ,URINE NEGATIVE (NEGATIVE); NITRITE,URINE NEGATIVE (NEGATIVE); PROTEIN,URINE NEGATIVE (NEGATIVE); RBC,URINE RARE /HPF; SQUAMOUS EPITHELIAL CELL,UR RARE /HPF; WBC,URINE RARE /HPF
[2023-05-10 20:44] VITALS: BP 120/68
== END 2023-05-10 20:55 | disposition home or self-care (01) ==
LOC: EDUNIT# 18:18 → ER 18:19
DX: E03.9 Hypothyroidism, unspecified (principal); E86.0 Dehydration
CPT/HCPCS: 70450; 71045; 80053; 81000; 82947; 84439; 84443; 84484; 85025; 99284; G0480; 36415; 80320; 93005

== ENCOUNTER → 2023-05-26 | Outpatient (CLI) | payer MEDICARE, OTHER ==
[~2023-05-26] MED LIST changes: +HOLD METFORMIN - RECEIVED CONTRAST 20 ML VIAL IV SCH; +IOHEXOL 350 MG/ML 100 ML (OMNIPAQUE 350) VIAL IV ONE; +NS 100 ML (IVPB) BAG IV ONE
--- NOTE | 2023-05-26 14:48 | Diagnostic Imaging Report ---
Procedure: CT chest with contrast only. Technique: Multiple contiguous axial images were obtained through the chest after administration of intravenous contrast. Auto Exposure Controls were utilized during the CT exam to meet ALARA standards for radiation dose reduction. Date: May 26, 2023. 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 Comparison: PET/CT June 19, 2021. Findings: There are small focal areas of scarring in the right upper lobe. There is a very small fat-containing right posterior diaphragmatic hernia. There is no identified pulmonary nodule or lung mass. There is no identified focal airspace consolidation. There is no pneumothorax. There is no pleural effusion. The heart is not enlarged. There is no pericardial effusion. There is no abnormally enlarged mediastinal, hilar, or axillary lymph node meeting CT size criteria for adenopathy. There is diffuse fatty infiltration of the liver. There is nonspecific bilateral perinephric stranding. There is questionable mild wall thickening of the distal esophagus. There are atherosclerotic calcifications. There are multilevel degenerative changes of the spine. There is no identified aggressive bone lesion. There is no identified acute bony abnormality. There are degenerative changes of the spine. Impression: 1. No evidence of metastatic disease to the lungs. 2. Questionable mild wall thickening of the distal esophagus. This may be further evaluated with upper endoscopy. 3. Diffuse fatty infiltration of the liver. Dictated by: Dictated on workstation # [id number]
== END ==
LOC: RAD 09:30
PROVIDERS: ATTEND Student in an Organized Health Care Education/Training Program
DX: K76.0 Fatty (change of) liver, not elsewhere classified (principal); R91.1 Solitary pulmonary nodule; Z85.830 Personal history of malignant neoplasm of bone
CPT/HCPCS: 71260

== ENCOUNTER → 2023-05-30 | Outpatient (CLI) | payer MEDICARE, OTHER ==
[~2023-05-30] MED LIST changes: -HOLD METFORMIN - RECEIVED CONTRAST 20 ML VIAL IV SCH; -IOHEXOL 350 MG/ML 100 ML (OMNIPAQUE 350) VIAL IV ONE; -NS 100 ML (IVPB) BAG IV ONE
--- NOTE | 2023-05-30 12:18 | Diagnostic Imaging Report ---
PROCEDURE: US carotid duplex, bilateral. TECHNIQUE: Multiple real-time grayscale images were obtained over the carotid arteries in various projections, bilaterally. Additional spectral analysis and color Doppler duplex images were also obtained. INDICATION: Postural dizziness and presyncope. FINDINGS: There is mild plaquing at both carotid bifurcations and proximal ICAs. Velocities are normal bilaterally. No velocity elevation or stenosis is identified. Both vertebral arteries show antegrade flow. IMPRESSION: Mild bilateral carotid plaque. There is no evidence of a hemodynamically significant stenosis. Parameters based on the consensus panel Franklin-Scale and Doppler ultrasound criteria published June 2003, Radiology, Volume 229. DOPPLER (peak systolic velocity M/S Right Left CCA .73 .75 ICA Proximal .79 .78 ICA Mid .81 .72 ICA Distal .70 .51 RATIO 1.17 MID 1.04 PROX ECA 1.16 .88 VERT .42 .39 Dictated by: Dictated on workstation # [id number]
== END ==
LOC: RAD 08:34
PROVIDERS: ATTEND Nurse Practitioner Family
DX: I65.23 Occlusion and stenosis of bilateral carotid arteries (principal); R55 Syncope and collapse
CPT/HCPCS: 93880